=== PATIENT | male | born 1975 | race Caucasian/White ===

== ENCOUNTER 2016-06-24 09:18 | Emergency (ER) | payer BC ==
[2016-06-24] MEDS ORDERED: Bacitracin Zinc 1 Packet ONE (10:26)
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
== END 2016-06-24 10:40 | disposition home or self-care (01) ==
LOC: BURERS 09:18
DX: S66.322A Laceration of extensor muscle, fascia and tendon of right middle finger at wrist and hand level, initial encounter (principal); W26.0XXA Contact with knife, initial encounter
CPT/HCPCS: 12001

== ENCOUNTER 2025-03-25 16:55 | Emergency (ER) | payer OTHER ==
[~2025-03-25 16:55] MED LIST: Iopamidol 370 76% 100 ML VIAL ONE
[2025-03-25] MEDS ORDERED: Ondansetron PF 4 MG/2 ML Vial ONE (17:06)
[2025-03-25] MEDS ORDERED: Acetaminophen 500 MG TAB ONE (17:06)
[2025-03-25 17:33] LABS: Hematocrit 38.4 % (42.0-52.0); Hemoglobin 14.5 g/dL (14.0-18.0); Mean Corpuscular Hemoglobin 30.5 pg (27.0-31.0); Mean Corpuscular Volume 80.4 fl (78.0-98.0); Platelet Count 508 10x3/uL (130-400); Red Blood Cell (RBC) Count 4.77 mill/uL (4.70-6.10); White Blood Cell (WBC) Count 13.7 10x3/uL (4.8-10.8)
[2025-03-25 17:39] LABS: Glucose, Urine (Dipstick) Negative (Negative); Leukocyte Negative (Negative); Protein, Urine (Dipstick) 100 mg/dL (Neg-Trace); Specific Gravity, Urine 1.015 (1.005-1.030)
[2025-03-25 17:41] LABS: ALT (SGPT) 37 U/L (Less than 45); AST (SGOT) 17 U/L (11-34); Albumin 2.7 g/dL (3.1-4.5); Alkaline Phosphatase 110 U/L (40-110); Anion Gap 20 mmol/L (10-20); BUN (Urea Nitrogen) 11 mg/dL (8.9-20.6); Bilirubin, Total 1.2 mg/dL (0.3-1.2); Calc. Creatinine Clearance 0 mL/min (70-130); Calcium 8.3 mg/dL (7.8-10.44); Carbon Dioxide 20 mmol/L (22-29); Chloride 95 mmol/L (98-107); Globulin 3.9 g/dL (2.4-3.5); Glucose 114 mg/dL (70-105); Lipase 6 U/L (8-78); Potassium 4.0 mmol/L (3.5-5.1); Sodium 131 mmol/L (136-145)
[2025-03-25 17:47] LABS: MDiff Complete? YES; Platelet Adequacy Comment Appears Increased
[2025-03-25 17:57] LABS: CAUTI Indications for Culture Dysuria,urgency,freq; WBC/HPF 0-3 HPF (0-3)
[2025-03-25 17:58] LABS: Bacteria/HPF Rare-Few HPF (None Seen)
[2025-03-25 17:59] LABS: Urine Culture Reflex No No
== END 2025-03-25 18:34 | disposition home or self-care (01) ==
LOC: BURERS 16:55
DX: K51.90 Ulcerative colitis, unspecified, without complications (principal)
CPT/HCPCS: 36415; 74177; 80053; 81001; 83605; 83690; 85025; 87040; 96361; 96374; 96375; J2405; J2919; Q9967